=== PATIENT | male | born 2000 | race Native Hawaiian/Other Pacific Islander ===

== ENCOUNTER 2019-09-07 20:58 | Emergency (ER) | payer BC ==
[~2019-09-07] VITALS: Ht 182.9 cm; Wt 99.3 kg
[2019-09-07 21:23] LABS: PLATELET COUNT 337 K/uL (142-355)
[2019-09-07 21:30] LABS: POTASSIUM 3.2 mmol/L (3.6-5.2); SODIUM 139 mmol/L (136-145)
[2019-09-07 23:02] VITALS: BP 124/76; TEMP 98.2
== END 2019-09-07 23:02 | disposition home or self-care (01) ==
LOC: EDBD 21:05 → ED 21:05
PROVIDERS: Family Medicine
DX: J70.5 Respiratory conditions due to smoke inhalation (principal); E87.6 Hypokalemia; R00.0 Tachycardia, unspecified
CPT/HCPCS: 36600; 80053; 81000; 82550; 82805; 84484; 85027; 93005; 99282; 99283

== ENCOUNTER 2022-05-04 09:32 | Emergency (ER) | payer BC ==
[~2022-05-04] VITALS: Ht 182.9 cm; Wt 83.5 kg
[2022-05-04 09:37] VITALS: TEMP 99.1
[2022-05-04 10:14] LABS: PLATELET COUNT 286 K/uL (142-355)
[2022-05-04 10:19] LABS: POTASSIUM 3.5 mmol/L (3.6-5.2)
[2022-05-04 10:26] LABS: PARTIAL THROMBOPLASTIN TIME 24.3 SECONDS (24.5-33.6)
[2022-05-04 12:08] VITALS: BP 120/63
== END 2022-05-04 12:29 | disposition home or self-care (01) ==
LOC: ED 09:32
PROVIDERS: Emergency Medicine
DX: R55 Syncope and collapse (principal); G40.A09 Absence epileptic syndrome, not intractable, without status epilepticus; V68.5XXA Driver of heavy transport vehicle injured in noncollision transport accident in traffic accident, initial encounter; Y92.89 Other specified places as the place of occurrence of the external cause
CPT/HCPCS: 80053; 80307; 80320; 81002; 83880; 84484; 85027; 85379; 85610; 85730; 87502; 93005; 99283